=== PATIENT | male | born 2000 | race Two or more races ===

== ENCOUNTER 2022-12-27 11:09 | Emergency (ER) | payer OTHER, BC ==
[2022-12-27] MEDS ORDERED: IBUPROFEN 600 MG TABLET (FP) PO ONE ×2 (11:39→11:43)
[2022-12-27 11:50] VITALS: BP 138/76; PULSE 89; RESP 18; TEMP 97.3; BMI 25.8
== END 2022-12-27 12:03 | disposition home or self-care (01) ==
LOC: JER 11:09
DX: S90.112A Contusion of left great toe without damage to nail, initial encounter (principal); W20.8XXA Other cause of strike by thrown, projected or falling object, initial encounter
CPT/HCPCS: 73660-TC-LT-FY; 99283-25